=== PATIENT | male | born 1950 | race Caucasian/White ===

== ENCOUNTER → 2023-09-16 06:20 | Day surgery (SDC) | payer MEDICARE, OTHER, SELFPAY | LOC: GI 06:20 | PROVIDERS: ATTENDING PHYSICIAN Internal Medicine Gastroenterology; FAMILY PHYSICIAN Family Medicine | DX: Z12.11 Encounter for screening for malignant neoplasm of colon (principal); D12.2 Benign neoplasm of ascending colon; D12.3 Benign neoplasm of transverse colon; K57.30 Diverticulosis of large intestine without perforation or abscess without bleeding; K64.0 First degree hemorrhoids | CPT/HCPCS: 45385; 45380; 88305 ==

== ENCOUNTER → 2025-04-30 10:28 | Outpatient (REF) | payer MEDICARE, OTHER, SELFPAY | LOC: RAD 10:28 | PROVIDERS: ATTENDING PHYSICIAN Family Medicine | DX: Z87.891 Personal history of nicotine dependence (principal); Z13.6 Encounter for screening for cardiovascular disorders; Z12.2 Encounter for screening for malignant neoplasm of respiratory organs | CPT/HCPCS: 71271; 76770 ==

== ENCOUNTER → 2025-06-11 14:23 | Outpatient (REF) | payer MEDICARE, OTHER, SELFPAY | LOC: MRI 14:23 | PROVIDERS: ATTENDING PHYSICIAN Internal Medicine Gastroenterology; FAMILY PHYSICIAN Family Medicine | DX: R74.8 Abnormal levels of other serum enzymes (principal); K76.0 Fatty (change of) liver, not elsewhere classified | CPT/HCPCS: 74181; 76391 ==